=== PATIENT | female | born 1995 | race Caucasian/White ===

== ENCOUNTER → 2017-08-29 09:35 | Outpatient (CLI) | payer SELFPAY ==
[2017-08-29 12:47] LABS: Free T3 2.4 pg/mL (2.18-3.98); T4 Free Direct 0.75 ng/dL (0.76-1.46); Thyroid Stim Hormone (TSH) 0.35 uIU/mL (0.358-3.74)
== END ==
PROVIDERS: Family Provider Pediatrics; PCP Pediatrics
DX: E03.9 Hypothyroidism, unspecified (principal)
CPT/HCPCS: 36415; 84439; 84443; 84481

== ENCOUNTER → 2018-01-27 09:02 | Outpatient (CLI) | payer SELFPAY ==
[2018-01-27 12:07] LABS: Free T3 2.4 pg/mL (2.18-3.98); T4 Free Direct 0.82 ng/dL (0.76-1.46); Thyroid Stim Hormone (TSH) 0.58 uIU/mL (0.358-3.74)
[2018-01-28 09:42] LABS: Vitamin D,25 Hydroxy 20.4 ng/mL (29.95-100.01)
== END ==
PROVIDERS: Family Provider Pediatrics; PCP Pediatrics
DX: E03.9 Hypothyroidism, unspecified (principal); E56.9 Vitamin deficiency, unspecified
CPT/HCPCS: 36415; 82306; 84439; 84443; 84481

== ENCOUNTER → 2018-07-07 13:36 | Outpatient (CLI) | payer SELFPAY ==
[2018-07-07 16:12] LABS: Free T3 3.2 pg/mL (2.18-3.98); T4 Free Direct 0.99 ng/dL (0.76-1.46); Thyroid Stim Hormone (TSH) 0.12 uIU/mL (0.358-3.74)
[2018-07-07 16:42] LABS: Vitamin D,25 Hydroxy 48.2 ng/mL (29.95-100.01)
--- OUTSIDE RECORDS SUMMARY | 2018-08-23 18:24 | XMS RPT_ITS ---
:1995 Author Organization OH[facility] Care Team Providers Name Role Phone [facility] [place] Attending Unavailable [facility] [place] Referring Unavailable Gustavo, Malena Primary Care Unavailable [facility] [place] Attending Unavailable [facility] [place] Referring Unavailable Gustavo, Malena Primary Care Unavailable [facility] [place] Attending Unavailable Gustavo, Malena Primary Care Unavailable PROBLEMS PROBLEMS DATE TYPE CONDITION / CODE ATTENDING STATUS SOURCE 04/17/2018 Unknown E03.9 - [facility] [place] Active [place] Hypothyroidism, Community unspecified / Hospital E03.9(ICD-10) Repository PROCEDURES PROCEDURES No Procedure Records FoundRESULTS RESULTS FREE T3 Collected: 07/07/2018 Status: F Source: [place] 1:42 PM [facility] REPOSITORY TYPE CODE TESTS RESULT OUT OF RANGE REFERENCE UNITS LAB L501.13239 2.18-3.98 pg/mL Normal FREE T3 3.2 Performed By: #### L501.23479, L501.9520, L506.0400 #### [place] [facility] [address] [place], [place], [address] THYROID STIM HORMONE Collected: 07/07/2018 Status: F Source: [place] (TSH) 1:42 PM [facility] REPOSITORY TYPE CODE TESTS RESULT OUT OF RANGE REFERENCE UNITS LAB L501.9520 0.358-3.74 uIU/mL Low TSH 0.12 Performed By: #### L501.15753, L501.9520, L506.0400 #### [facility] [address] [place], [address] T4 FREE DIRECT Collected: 07/07/2018 Status: F Source: [place] 1:42 PM [facility] REPOSITORY TYPE CODE TESTS RESULT OUT OF RANGE REFERENCE UNITS LAB L506.0400 0.76-1.46 ng/dL Normal T4 FREE 0.99 DIRECT Performed By: #### L501.54335, L501.9520, L506.0400 #### [facility] [address] [place], [address] VITAMIN D,25 HYDROXY Collected: 07/07/2018 Status: F Source: [place] 1:42 PM [facility] REPOSITORY TYPE CODE TESTS RESULT OUT OF RANGE REFERENCE UNITS LAB L506.1000 29.95-100.01 ng/mL Normal Vitamin D 48.2 25-OH Result Comment: Vitamin D 25(OH) Status Range Deficiency <20 ng/mL (50nmol/L) Insuffciency 20 - 30 ng/mL (50 - 75 nmol/L) Sufficiency 30 - 100 ng/mL (75 - 250 nmol/L) Toxicity >100 ng/mL (>250 nmol/L) Performed By: #### L506.1000 #### [facility] [address] [place], [address] FREE T3 Collected: 01/27/2018 Status: F Source: [place] 9:15 AM [facility] REPOSITORY Order Comment: Comments: [id number] SERUM IODINE 0.5 VOL RT ROYAL BLUE TUB TYPE CODE TESTS RESULT OUT OF RANGE REFERENCE UNITS LAB L501.99815 2.18-3.98 pg/mL Normal FREE T3 2.4 Performed By: #### L501.31550, L501.9520, L506.0400 #### [facility] [address] [place], [address] THYROID STIM HORMONE Collected: 01/27/2018 Status: F Source: [place] (TSH) 9:15 AM [facility] REPOSITORY Order Comment: Comments: [id number] SERUM IODINE 0.5 VOL RT ROYAL BLUE TUB TYPE CODE TESTS RESULT OUT OF RANGE REFERENCE UNITS LAB L501.9520 0.358-3.74 uIU/mL Normal TSH 0.58 Performed By: #### L501.66690, L501.9520, L506.0400 #### [facility] [address] [place], [address] T4 FREE DIRECT Collected: 01/27/2018 Status: F Source: [place] 9:15 AM [facility] REPOSITORY Order Comment: Comments: [id number] SERUM IODINE 0.5 VOL RT ROYAL BLUE TUB TYPE CODE TESTS RESULT OUT OF RANGE REFERENCE UNITS LAB L506.0400 0.76-1.46 ng/dL Normal T4 FREE 0.82 DIRECT Performed By: #### L501.39667, L501.9520, L506.0400 #### [facility] [address] [place], [place], [address] VITAMIN D,25 HYDROXY Collected: 01/27/2018 Status: F Source: [place] 9:15 AM [facility] REPOSITORY TYPE CODE TESTS RESULT OUT OF REFERENCE UNITS RANGE LAB L506.1000 29.95-100.01 ng/mL Low Vitamin D 20.4 25-OH Result Comment: Vitamin D 25(OH) Status Range Deficiency <20 ng/mL (50nmol/L) Insuffciency 20 - 30 ng/mL (50 - 75 nmol/L) Sufficiency 30 - 100 ng/mL (75 - 250 nmol/L) Toxicity >100 ng/mL (>250 nmol/L) Performed By: #### L506.1000 #### [facility] [address] [place], [address] MISCELLANEOUS LAB Collected: 01/27/2018 Status: F Source: [place] PROCEDURE 9:15 AM [facility] REPOSITORY Order Comment: Comments: [id number] SERUM IODINE 0.5 VOL RT ROYAL BLUE TUB Test(s) Ordered: [id number] SERUM IODINE 0.5 VOL RT ROYAL BLUE TUBE TYPE CODE TESTS RESULT OUT OF RANGE REFERENCE UNITS LAB L801.1541 Normal [facility] LAB TEST Result Comment: TEST RESULT LIMITS Iodine, Serum or Plasma 40.5 ug/L 40.0 - 92.0 Limit of quantitation = 20 TESTING PERFORMED AT [facility]. ORIGINAL REPORT ON FILE IN LAB CONTAINS ADDITIONAL TEST SITE INFORMATION. Performed By: #### L801.1541 #### [facility] [address] [place] [address]. [place], [place], [address] FREE T3 Collected: 08/29/2017 Status: F Source: [place] 9:43 AM [facility] REPOSITORY TYPE CODE TESTS RESULT OUT OF RANGE REFERENCE UNITS LAB L501.83353 2.18-3.98 pg/mL Normal FREE T3 2.4 Performed By: #### L501.94269, L501.9520, L506.0400 #### [facility] [place], [place], [address] THYROID STIM HORMONE Collected: 08/29/2017 Status: F Source: [place] (TSH) 9:43 AM [facility] REPOSITORY TYPE CODE TESTS RESULT OUT OF RANGE REFERENCE UNITS LAB L501.9520 0.358-3.74 uIU/mL Low TSH 0.35 Performed By: #### L501.90855, L501.9520, L506.0400 #### [facility] [address] [place], [place], [address] T4 FREE DIRECT Collected: 08/29/2017 Status: F Source: [place] 9:43 AM [facility] REPOSITORY TYPE CODE TESTS RESULT OUT OF REFERENCE UNITS RANGE LAB L506.0400 0.76-1.46 ng/dL Low T4 FREE 0.75 DIRECT Performed By: #### L501.39077, L501.9520, L506.0400 #### [facility] [address] [place], [address] ALLERGIES ALLERGIES No Allergies Records FoundENCOUNTERS ENCOUNTERS ADMIT/DISCHARGE ACCOUNT ADMITTING ENCOUNTER LOCATION SOURCE NUMBER CLASS 07/07/2018 [id number] Ambulatory [place] [facility] ing:MTLAB Repository 01/27/2018 [id number] Ambulatory [place] 4 [facility] ing:MTLAB Repository 08/29/2017 [id number] Ambulatory [place] 0 [facility] ing:MTLAB Repository PAYERS PAYERS ENCOUNTER GUARANTOR PAYER SUBSCRIBER SOURCE 07/07/2018 INDIA AYO Primary NOT GIVENUNK [place] [id number] Insurance:SELF PAY [address], Number: Effective Repository [place] [id number]: Date:2018-07-07 () 01/27/2018 [place] Ayo Primary NOT GIVENUNK [place] [address] [address] Insurance:SELF PAY [address] [id number]: Number: Effective Repository Date:2018-01-27 () 08/29/2017 [place] Ayo Primary NOT GIVENUNK [place] [employer] Insurance:SELF PAY [address] [id number]: Number: Effective Repository Date:2017-08-29 ()
== END ==
PROVIDERS: Family Provider Pediatrics; PCP Pediatrics
DX: E03.9 Hypothyroidism, unspecified (principal); R53.83 Other fatigue; E56.9 Vitamin deficiency, unspecified
CPT/HCPCS: 36415; 82306; 84439; 84443; 84481

== ENCOUNTER → 2018-12-07 10:02 | Outpatient (CLI) | payer SELFPAY ==
[2018-12-07 12:48] LABS: Free T3 2.5 pg/mL (2.18-3.98); T4 Free Direct 0.83 ng/dL (0.76-1.46); Thyroid Stim Hormone (TSH) 0.38 uIU/mL (0.358-3.74)
== END ==
PROVIDERS: Family Provider Pediatrics; PCP Pediatrics
DX: E03.9 Hypothyroidism, unspecified (principal)
CPT/HCPCS: 36415; 84439; 84443; 84481

== ENCOUNTER → 2019-06-30 08:55 | Outpatient (CLI) | payer SELFPAY ==
[2019-06-30 11:01] LABS: Free T3 3.4 pg/mL (2.18-3.98); T4 Free Direct 1.15 ng/dL (0.76-1.46); Thyroid Stim Hormone (TSH) 0.25 uIU/mL (0.358-3.74)
[2019-06-30 11:16] LABS: Vitamin D,25 Hydroxy 67.7 ng/mL (29.95-100.01)
== END ==
PROVIDERS: Family Provider Pediatrics; PCP Pediatrics
DX: E03.9 Hypothyroidism, unspecified (principal); E56.9 Vitamin deficiency, unspecified
CPT/HCPCS: 36415; 82306; 84439; 84443; 84481

== ENCOUNTER → 2020-04-25 10:25 | Outpatient (CLI) | payer SELFPAY ==
[2020-04-25 13:23] LABS: Free T3 2.5 pg/mL (2.18-3.98); T4 Free Direct 0.95 ng/dL (0.76-1.46); Thyroid Stim Hormone (TSH) 0.87 uIU/mL (0.358-3.74)
== END ==
PROVIDERS: PCP Pediatrics
DX: E03.9 Hypothyroidism, unspecified (principal)
CPT/HCPCS: 36415; 84439; 84443; 84481

== ENCOUNTER → 2020-11-06 15:07 | Outpatient (CLI) | payer SELFPAY ==
[2020-11-06 18:32] LABS: Free T3 2.3 pg/mL (2.18-3.98); T4 Free Direct 0.98 ng/dL (0.76-1.46); Thyroid Stim Hormone (TSH) 0.61 uIU/mL (0.358-3.74); Vitamin D,25 Hydroxy 24.2 ng/mL
== END ==
PROVIDERS: PCP Pediatrics
DX: E03.9 Hypothyroidism, unspecified (principal); E55.9 Vitamin D deficiency, unspecified
CPT/HCPCS: 36415; 82306; 84439; 84443; 84481

== ENCOUNTER → 2021-05-03 10:23 | Outpatient (CLI) | payer SELFPAY ==
[2021-05-03 12:39] LABS: Vitamin D,25 Hydroxy 27.8 ng/mL
[2021-05-03 13:23] LABS: Free T3 2.2 pg/mL (2.18-3.98); T4 Free Direct 1.06 ng/dL (0.76-1.46); Thyroid Stim Hormone (TSH) 0.97 uIU/mL (0.358-3.74)
== END ==
PROVIDERS: PCP Pediatrics
DX: E03.9 Hypothyroidism, unspecified (principal); E55.9 Vitamin D deficiency, unspecified
CPT/HCPCS: 36415; 82306; 84439; 84443; 84481

== ENCOUNTER → 2022-11-12 | Outpatient (CLI) | payer SELFPAY ==
[2022-11-12 13:18] LABS: Vitamin D,25 Hydroxy 21.5 ng/mL
[2022-11-12 14:04] LABS: T4 Free Direct 0.99 ng/dL (0.76-1.46); Thyroid Stim Hormone (TSH) 1.54 uIU/mL (0.358-3.74)
[2022-11-13 15:08] LABS: Thyroglobulin Antibody < 1.0 IU/mL (0.0-0.9); Thyroid Peroxidase AB 10 IU/mL (0-34)
== END | disposition home or self-care (01) ==
PROVIDERS: PCP Pediatrics
DX: E03.9 Hypothyroidism, unspecified (principal); E55.9 Vitamin D deficiency, unspecified
CPT/HCPCS: 36415; 82306; 84439; 84443; 84481; 86376; 86800

== ENCOUNTER → 2023-04-24 | Outpatient (CLI) | payer SELFPAY ==
[2023-04-24 13:38] LABS: Free T3 2.1 pg/mL (2.18-3.98); T4 Free Direct 0.89 ng/dL (0.76-1.46); Thyroid Stim Hormone (TSH) 1.53 uIU/mL (0.358-3.74)
== END | disposition home or self-care (01) ==
DX: E55.9 Vitamin D deficiency, unspecified (principal); E03.9 Hypothyroidism, unspecified
CPT/HCPCS: 36415; 82306; 84439; 84443; 84481

== ENCOUNTER → 2023-09-18 | Outpatient (CLI) | payer SELFPAY ==
[2023-09-18 13:40] LABS: Free T3 4.3 pg/mL (2.18-3.98); T4 Free Direct 0.93 ng/dL (0.76-1.46); Thyroid Stim Hormone (TSH) 0.27 uIU/mL (0.358-3.74)
== END | disposition home or self-care (01) ==
DX: E03.9 Hypothyroidism, unspecified (principal)
CPT/HCPCS: 36415; 84439; 84443; 84481

== ENCOUNTER → 2024-09-13 | Outpatient (CLI) | payer SELFPAY ==
[2024-09-13 12:41] LABS: Free T3 2.2 pg/mL (2.18-3.98)
== END | disposition home or self-care (01) ==
DX: E03.9 Hypothyroidism, unspecified (principal)
CPT/HCPCS: 36415; 84439; 84443; 84481